=== PATIENT | male | born 1960 | race Caucasian/White ===

== ENCOUNTER → 2018-04-13 | Outpatient (CLI) | payer BC | LOC: GMAL 10:52 | PROVIDERS: ATTEND Family Medicine | DX: D51.3 Other dietary vitamin B12 deficiency anemia (principal); R53.83 Other fatigue; E55.9 Vitamin D deficiency, unspecified; Z12.5 Encounter for screening for malignant neoplasm of prostate ==

== ENCOUNTER → 2018-08-23 | Outpatient (CLI) | payer BC | LOC: GMAL 12:27 | PROVIDERS: ATTEND Family Medicine | DX: E55.9 Vitamin D deficiency, unspecified (principal) ==

== ENCOUNTER → 2019-04-17 | Outpatient (CLI) | payer BC ==
--- NOTE | 2019-04-18 11:23 | CT ---
EXAM DESCRIPTION: Abdomen/Pelvis w/wo Contrast: Computed Tomography. CLINICAL HISTORY: RLQ PAIN COMPARISON: Abdomen radiograph 11 April 2019. TECHNIQUE: Spiral-axial scans at 5 x 5 mm intervals through the abdomen and pelvis before and after 75 mL Optiray 320 nonionic IV contrast. No oral contrast. Coronal and sagittal 2.0 mm reconstructions. 5 mm Delayed helical-axial scans, liver through the pubic symphysis. No adverse reactions. Total Exam DLP 3150.12 mGy - cm. This exam was performed according to our departmental CT dose-optimization program which includes automated exposure control, adjustment of the mA and/or kV according to patient size and/or use of iterative reconstruction technique; to reduce radiation dose to as low as reasonably achievable (ALARA). FINDINGS: Lung bases and pleura: Negative. Liver, Stomach, Spleen, Adrenal Glands: Negative. Pancreas, Gallbladder, Ducts: Gallbladder visualized. Unremarkable. Kidneys and Ureters: Unremarkable. Mesentery: Focally increased density of the mesentery in the anterior midline abdomen inferior to the pancreas to the level of the mid kidneys, surrounding small lymph nodes, on all scans. No free air, mass, or free fluid. Aorta: Moderate atherosclerotic calcification with normal caliber. Calcification ostia of the right renal artery. Small Bowel: Mesenteric changes as described. Normal caliber with no air-fluid levels. Terminal Ileum/Cecum: Normal caliber along with unremarkable appendix and normal surrounding fat density. Colon: Minimal distention with gas and fecal matter proximally with mid and distal decompression and fecal matter in the rectum. Diverticula descending colon and sigmoid with no complications. Pelvic Organs: Prostate gland abutting the seminal vesicles, and base of the urinary bladder which is not distended. Small calcification in the gland. Spine and Bony Pelvis: Spondylosis multiple levels of the included thoracic and upper lumbar spine with foraminal narrowing. Minimal hypertrophic acetabular covering of the femoral heads bilaterally. Abdominal Wall/Back Soft Tissues: Small bilateral fatty inguinal hernias not containing bowel. IMPRESSION: 1. Mesenteric adenitis, mid abdomen in the midline, with possible adjacent enteritis proximal small bowel. Below the level of the pancreas; pancreas and fat surrounding the pancreas unremarkable. No free air or free fluid. No bowel obstruction. 2. Diverticulosis distal colon and minimal constipation with no complications. 3. Spondylosis lower thoracic and upper lumbar spine with possible bilateral femoral acetabular impingement. 4. Small bilateral fatty inguinal hernias not containing bowel. Electronically signed by: Yo Betancourt MD 04/18/2019 11:22 AM CDT
== END ==
LOC: CT 10:01
PROVIDERS: ATTEND Family Medicine
DX: K57.30 Diverticulosis of large intestine without perforation or abscess without bleeding (principal); K40.20 Bilateral inguinal hernia, without obstruction or gangrene, not specified as recurrent; I88.0 Nonspecific mesenteric lymphadenitis; M47.894 Other spondylosis, thoracic region; M47.896 Other spondylosis, lumbar region

== ENCOUNTER → 2020-06-11 | Outpatient (CLI) | payer BC ==
--- NOTE | 2020-06-12 10:25 | MRI ---
EXAM DESCRIPTION: Lumbar Spine w/o Contrast : Magnetic Resonance Imaging. CLINICAL HISTORY: low back pain COMPARISON: None. TECHNIQUE: Multiplanar, multiple standard sequences, non contrast MRI, lumbar spine. FINDINGS: L5-S1: The disc is well visualized on axial T2 series 501, image 3. Disc protrusion to the left of midline 1.6 cm transverse and 6 cm AP dimensions, encroaching on the left subarticular recess and posteriorly displacing the left S1 nerve. Minimal hypertrophic changes in the posterior flavum ligaments and bilateral facet joints (canal elements) more left than right. Bilaterally short pedicles. Left paracentral canal measures 10 mm. Bilateral foraminal stenosis. L4-L5: Disc desiccation with disc space maintained. Disc bulging into the left foramen with hyperintense T2 annular fissure. Left foraminal stenosis and compromise of the left L4 nerve. [id number] narrowing of the right foramen. Hypertrophic changes in the canal elements. Bilateral pedicle shortening. AP canal diameter 11 mm. L3-L4: Normal signal and disc with disc space maintained. Hypertrophic changes in the canal elements. Bilateral pedicle shortening. AP canal diameter 12 mm. Bilateral moderate foraminal narrowing. Well-circumscribed hyperintense T1 and T2 hemangioma in the L3 vertebral body L2-L3: Disc desiccation minimal anterior bulging and mild endplate reactive changes and endplate ridging. No posterior bulging. Bilateral pedicle shortening. AP canal diameter 11 mm. Mild left foraminal narrowing. Right foramen patent. L1-L2: Disc desiccation with disc space maintained. Concavities in the endplates. No bulging. Mild hypertrophic changes in the canal elements and bilaterally short pedicles. AP canal diameter 12 mm. Right foramen patent and mildly narrowing left foramen. Well-circumscribed hyperintense T1 and T2 hemangioma in the base of the left L1 pedicle. Larger hemangioma occupying most of the L1 vertebral body in the midline anterior and right side. The large hemangioma is also hyperintense on STIR imaging. T12-L1: Anterior mild endplate reactive changes with endplate ridging and disc bulging. Schmorl's nodes in the superior and inferior endplate. No posterior bulge. Hypertrophic changes in the canal elements. Bilateral short pedicles and mild to moderate canal narrowing. Conus terminates at this level. Foramina are patent. No significant scoliosis. Paravertebral soft tissues negative. Distal cord normal signal and caliber. Otherwise normal marrow signal in the remaining vertebral bodies and the posterior elements. Vertebral bodies are not compressed at any level. IMPRESSION: 1. Multilevel hypertrophic changes in the posterior flavum ligaments and facet joints and bilateral pedicle shortening contributing to canal narrowing. 2. Large left posterior L5-S1 disc herniation with effacement of the left subarticular recess and posterior displacement of the left S1 nerve. Left neuroforaminal stenosis. Borderline right foraminal stenosis. 3. Please refer to FINDINGS for discussion of results or other disc space levels. Electronically signed by: Yo Betancourt MD 06/12/2020 10:24 AM [facility]
== END ==
LOC: MRI 09:55
PROVIDERS: ATTEND Family Medicine
DX: M51.26 Other intervertebral disc displacement, lumbar region (principal); M51.86 Other intervertebral disc disorders, lumbar region; M24.28 Disorder of ligament, vertebrae; M51.27 Other intervertebral disc displacement, lumbosacral region; M48.07 Spinal stenosis, lumbosacral region; D18.09 Hemangioma of other sites